=== PATIENT | male | born 1970 | race Caucasian/White ===

== ENCOUNTER 2024-03-22 13:23 | Emergency (ER) | payer OTHER ==
[2024-03-22 13:37] VITALS: TEMP 98.3
[2024-03-22] MEDS ORDERED: DUONEB 0.5-3 MG/3 ml Neb IH ONE (13:51)
[2024-03-22] MEDS: DUONEB 0.5-3 MG/3 ml Neb IH ONE (13:55)
--- NOTE | 2024-03-22 14:00 | ERPHSYRPT ---
- History of Present Illness Time Seen by Provider: 03/22/24 13:52 Historian: patient Exam Limitations: no limitations Patient Subjective Stated Complaint: chest discomfort Triage Nursing Assessment: patient state that he has had a cold the last few weeks feeling moderately SOB. over the past week he has had intermittent chest pain that has brought him to his knees. now currently is experiencing discomfort Physician History: 54 years old male with history of tobacco use presented in the ER with complaint of right-sided chest pain off and on for 1 week along with shortness of breath. Patient reports initially he had cold symptoms, coughing up yellow-green sputum moderate in amount. Since last week he is having shortness of breath with minimal exertion where he has to rest to catch his breath. He is also comp laining of right lower chest pain and hurts to take a deep breath. He was walking his kids to the bus stop and it suddenly hit bringing him to his knees. Denies any lower extremity swelling. Patient reports having history of chest pains in the past and had stress test done sometimes back in [place] but does not know the results. Did not have a cardiac cath done. Prior Chest Pain/Cardiac Workup: no prior chest pain Nitro Today/Relief: no nitro taken today Aspirin Treatment Today: no aspirin today Allergies/Adverse Reactions: No Known Drug Allergies Allergy (Unverified 03/22/24 13:37) Travel Risk - International Travel Have you traveled outside of the country in past 3 weeks: No - Emerging Infectious Disease Symptoms: Abdominal Pain, Cough: New Onset, Diarrhea, Headaches/Body Aches/, Joint Pain, Shortness of Breath - Review of Systems Constitutional: No Symptoms Eyes: No Symptoms Ears, Nose, & Throat: No Symptoms Respiratory: Cough, Dyspnea, Dyspnea on Exertion (PETER) Cardiac: Chest Pain Abdominal/Gastrointestinal: No Symptoms Genitourinary Symptoms: No Symptoms Musculoskeletal: No Symptoms Skin: No Symptoms Neurological: No Symptoms Endocrine: No Symptoms Hematologic/Lymphatic: No Symptoms - Past Medical History Cardiac History: Angina Respiratory History: COPD - Social History Smoking Status: Current every day smoker How long have you smoked: 40 Drug Use: none - Nursing Vital Signs Nursing Vital Signs: Initial Vital Signs Temperature 98.3 F 03/22/24 13:29 Pulse Rate 90 03/22/24 13:29 Respiratory Rate 16 03/22/24 13:29 Blood Pressure 140/84 03/22/24 13:29 O2 Sat by Pulse Oximetry 98 03/22/24 13:29 Pain Scale Pain Intensity 0 - Physical Exam General Appearance: no apparent distress Eye Exam: PERRL/EOMI Ears, Nose, Throat Exam: normal ENT inspection, pharynx normal Neck Exam: normal inspection, non-tender, supple, full range of motion Respiratory Exam: diminished breath sounds (Right lower), No accessory muscle use, No wheezing Cardiovascular Exam: regular rate/rhythm, normal heart sounds Gastrointestinal/Abdomen Exam: soft, normal bowel sounds, No tenderness Back Exam: normal inspection, normal range of motion Extremity Exam: normal inspection, normal range of motion Neurologic Exam: alert, oriented x 3, cooperative Skin Exam: normal color SpO2 Interpretation: normal SpO2: 98 O2 Delivery: Room Air - Course EKG Interpreted by Me: RATE (76), Sinus Rhythm, NORMAL AXIS, NORMAL INTERVALS, NORMAL QRS Ordered Tests: Active Orders 24 hr Category Date Time Status EKG-ER Only STAT Care 03/22/24 13:46 Completed IV Insertion STAT Care 03/22/24 13:46 Completed CHEST WITH CONTRAST [CT] Stat Exams 03/22/24 15:01 Completed BLOOD CULTURE Stat Lab 03/22/24 14:09 Received CBC W DIFF Stat Lab 03/22/24 14:02 Completed CMP Stat Lab 03/22/24 14:02 Completed D-DIMER QUANTITATIVE Stat Lab 03/22/24 14:02 Completed Lactic Acid Stat Lab 03/22/24 13:46 Completed Lactic Acid Stat Lab 03/22/24 16:00 Completed MAGNESIUM Stat Lab 03/22/24 14:02 Completed NT PRO BNPII Stat Lab 03/22/24 14:09 Completed TROPONIN Q4H Lab 03/22/24 14:09 Completed TROPONIN Q4H Lab 03/22/24 17:28 Completed Respiratory Therapy Assessment DAILY RT 03/22/24 13:58 Completed Transfer Order Routine Transfer 03/22/24 Ordered Medication Summary Discontinued Medications Generic Name Dose Route Start Last Admin Trade Name Freq PRN Reason Stop Dose Admin Albuterol/Ipratropium 3 ml 03/22/24 13:46 03/22/24 13:55 Ipratropium/Albuterol Sulfate 3 Ml Ampul.Neb IH 03/22/24 13:47 3 ml STAT ONE Administration Albuterol/Ipratropium Confirm 03/22/24 13:51 Ipratropium/Albuterol Sulfate 3 Ml Ampul.Neb Administered 03/22/24 13:52 Dose 3 ml IH .STK-MED ONE Sodium Chloride 1,000 mls @ 999 mls/hr 03/22/24 15:02 03/22/24 17:09 Sodium Chloride 0.9% 1000 Ml IV 03/22/24 16:02 Infused .Q1H1M STA Infusion Sodium Chloride Confirm 03/22/24 15:13 Sodium Chloride 0.9% 1000 Ml Administered 03/22/24 15:14 Dose 1,000 mls @ ud .ROUTE .STK-MED ONE Lab/Rad Data: Laboratory Result Diagrams 03/22/24 14:02 03/22/24 14:02 Laboratory Results 03/22/24 03/22/24 03/22/24 Range/Units 17:28 16:00 14:09 WBC (4.23-9.07) x10^3/uL RBC (4.63-6.08) x10^6/uL Hgb (13.7-17.5) g/dL Hct (40.1-51.0) % MCV (79.0-92.2) fL MCH (25.7-32.2) pg MCHC (32.3-36.5) g/dL RDW (11.6-14.4) % Plt Count (163-337) x10^3/uL MPV (9.4-12.4) fL Gran % (34.0-67.9) % Immature Gran % (Auto) (0.001-0.429) % Nucleat RBC Rel Count (0.00-0.2) % Eos # (Auto) (0.04-0.54) x10^3/uL Immature Gran # (Auto) (0.001-0.031) x10^3u/L Absolute Lymphs (auto) (1.32-3.57) x10^3/uL Absolute Monos (auto) (0.30-0.82) x10^3/uL Absolute Nucleated RBC (0.00-0.012) x10^3u/L Lymphocytes % (21.8-53.1) % Monocytes % (5.3-12.2) % Eosinophils % (0.8-7.0) % Basophils % (0.2-1.2) % Absolute Granulocytes (1.78-5.38) x10^3/uL Basophils # (0.01-0.08) x10^3/uL D-Dimer (0.0-0.50) mg/L Sodium (135-145) mmol/L Potassium (3.5-5.1) mmol/L Chloride (98-107) mmol/L Carbon Dioxide (22-30) mmol/L Anion Gap (5-15) MEQ/L BUN (9-20) mg/dL Creatinine (0.66-1.25) mg/dL Estimated GFR ML/MIN Glucose (74-106) mg/dL Lactic Acid 0.9 (0.4-2.0) Calcium (8.4-10.2) mg/dL Magnesium (1.6-2.3) mg/dL Total Bilirubin (0.2-1.3) mg/dL AST (17-59) U/L ALT (0-50) U/L Alkaline Phosphatase (38-126) U/L Troponin I < 0.012 (0.000-0.033) ng/mL NT-Pro-B Natriuret Pep 22.0 (<300) pg/mL Serum Total Protein (6.3-8.2) g/dL Albumin (3.5-5.0) g/dL 03/22/24 03/22/24 03/22/24 Range/Units 14:09 14:02 14:02 WBC (4.23-9.07) x10^3/uL RBC (4.63-6.08) x10^6/uL Hgb (13.7-17.5) g/dL Hct (40.1-51.0) % MCV (79.0-92.2) fL MCH (25.7-32.2) pg MCHC (32.3-36.5) g/dL RDW (11.6-14.4) % Plt Count (163-337) x10^3/uL MPV (9.4-12.4) fL Gran % (34.0-67.9) % Immature Gran % (Auto) (0.001-0.429) % Nucleat RBC Rel Count (0.00-0.2) % Eos # (Auto) (0.04-0.54) x10^3/uL Immature Gran # (Auto) (0.001-0.031) x10^3u/L Absolute Lymphs (auto) (1.32-3.57) x10^3/uL Absolute Monos (auto) (0.30-0.82) x10^3/uL Absolute Nucleated RBC (0.00-0.012) x10^3u/L Lymphocytes % (21.8-53.1) % Monocytes % (5.3-12.2) % Eosinophils % (0.8-7.0) % Basophils % (0.2-1.2) % Absolute Granulocytes (1.78-5.38) x10^3/uL Basophils # (0.01-0.08) x10^3/uL D-Dimer 0.55 H (0.0-0.50) mg/L Sodium 139 (135-145) mmol/L Potassium 3.8 (3.5-5.1) mmol/L Chloride 102 (98-107) mmol/L Carbon Dioxide 26 (22-30) mmol/L Anion Gap 13.8 (5-15) MEQ/L BUN 13 (9-20) mg/dL Creatinine 1.00 (0.66-1.25) mg/dL Estimated GFR 90.0 ML/MIN Glucose 107 H (74-106) mg/dL Lactic Acid (0.4-2.0) Calcium 9.7 (8.4-10.2) mg/dL Magnesium 2.1 (1.6-2.3) mg/dL Total Bilirubin 0.40 (0.2-1.3) mg/dL AST 28 (17-59) U/L ALT 30 (0-50) U/L Alkaline Phosphatase 61 (38-126) U/L Troponin I < 0.012 (0.000-0.033) ng/mL NT-Pro-B Natriuret Pep (<300) pg/mL Serum Total Protein 7.7 (6.3-8.2) g/dL Albumin 4.5 (3.5-5.0) g/dL 03/22/24 03/22/24 Range/Units 14:02 13:46 WBC 7.4 (4.23-9.07) x10^3/uL RBC 5.09 (4.63-6.08) x10^6/uL Hgb 15.5 (13.7-17.5) g/dL Hct 45.6 (40.1-51.0) % MCV 89.6 (79.0-92.2) fL MCH 30.5 (25.7-32.2) pg MCHC 34.0 (32.3-36.5) g/dL RDW 12.7 (11.6-14.4) % Plt Count 216 (163-337) x10^3/uL MPV 10.1 (9.4-12.4) fL Gran % 68.6 H (34.0-67.9) % Immature Gran % (Auto) 0.7 H (0.001-0.429) % Nucleat RBC Rel Count 0.0 (0.00-0.2) % Eos # (Auto) 0.11 (0.04-0.54) x10^3/uL Immature Gran # (Auto) 0.05 H (0.001-0.031) x10^3u/L Absolute Lymphs (auto) 1.54 (1.32-3.57) x10^3/uL Absolute Monos (auto) 0.60 (0.30-0.82) x10^3/uL Absolute Nucleated RBC 0.00 (0.00-0.012) x10^3u/L Lymphocytes % 20.8 L (21.8-53.1) % Monocytes % 8.1 (5.3-12.2) % Eosinophils % 1.5 (0.8-7.0) % Basophils % 0.3 (0.2-1.2) % Absolute Granulocytes 5.09 (1.78-5.38) x10^3/uL Basophils # 0.02 (0.01-0.08) x10^3/uL D-Dimer (0.0-0.50) mg/L Sodium (135-145) mmol/L Potassium (3.5-5.1) mmol/L Chloride (98-107) mmol/L Carbon Dioxide (22-30) mmol/L Anion Gap (5-15) MEQ/L BUN (9-20) mg/dL Creatinine (0.66-1.25) mg/dL Estimated GFR ML/MIN Glucose (74-106) mg/dL Lactic Acid 2.5 H (0.4-2.0) Calcium (8.4-10.2) mg/dL Magnesium (1.6-2.3) mg/dL Total Bilirubin (0.2-1.3) mg/dL AST (17-59) U/L ALT (0-50) U/L Alkaline Phosphatase (38-126) U/L Troponin I (0.000-0.033) ng/mL NT-Pro-B Natriuret Pep (<300) pg/mL Serum Total Protein (6.3-8.2) g/dL Albumin (3.5-5.0) g/dL - Progress Progress: re-examined Air Movement: good Progress Note: 03/22/24 17:59 54 years old is evaluated in the ER for right-sided chest pain with some shortness of breath off and on going on for a month with progressive worsening lately. The EKG is normal sinus rhythm with no acute ischemic changes. Is given fluids and symptomatic treatment, on reevaluation he is feeling much better. Patient has normal white count, chemistries fairly unremarkable including troponin x 2, has elevated D-dimer but CTA is negative for pulmonary embolism, pneumonia pneumothorax. Patient has stable nodules which she is advised to have outpatient follow-up. Initial lactate was 2.5 but after fluids it improved to 0.9. Patient is a low heart score and pain is not very typical of cardiac. Does seem to have some element of reactive airway di sease/bronchitis. I would treat him with short course of steroid, Z-Emile since patient's symptoms been going on for a month and albuterol inhaler. Outpatient follow-up with primary care and cardiology recommended. Discussed signs symptoms of worsening needing return to ER which he seems understanding. Stable for discharge. Counseled pt/family regarding: lab results, diagnosis, need for follow-up, rad results Medical Desision Making - Independent Historian Additional History obtained from: Spouse - Diagnostic Testing Diagnostic test were ordered, analyzed, and reviewed by me: Yes Radiological Interpretation: Reviewed by me, Teleradiologist Report - Risk of complications The pt has a mod risk of morbidity or mortality based on: Need for prescription drug management - Departure Departure Disposition: Home Clinical Impression: Bronchitis, Atypical chest pain Condition: Stable Critical Care Time: No Referrals: DOCTOR,NO FAMILY [Primary Care Provider] - Follow up with PCP 1 day MARYAN PRADO [CONSULTING PHYSICIAN] - Follow up/PCP as directed (Call for appointment) Instructions: Angina (DC), Acute bronchitis in adults Additional Instructions: Do not smoke. Follow-up with primary care and cardiology for reevaluation. Return to ER for worsening chest pain/difficulty breathing or if develop fever chills etc. Prescriptions: Albuterol Sulfate [Albuterol Sulfate Hfa] 8.5 gm IH Q6H PRN 7 Days #1 inh PRN Reason: Cough Prednisone 20 mg [Deltasone 20 mg] 60 mg PO DAILY 5 Days #15 tablet Azithromycin 250 mg [Zithromax 250 MG TABLET] 250 mg PO ZPACK #6 tablet
[2024-03-22 14:21] LABS: Absolute Neutrophil Ct (ANC) 5.09 x10^3/uL (1.78-5.38); BASOPHIL % 0.3 % (0.2-1.2); Basophil (Absolute #) 0.02 x10^3/uL (0.01-0.08); Eosinophil % 1.5 % (0.8-7.0); Eosinophil (Absolute #) 0.11 x10^3/uL (0.04-0.54); Hematocrit 45.6 % (40.1-51.0); Hemoglobin 15.5 g/dL (13.7-17.5); IMMATURE GRAN # 0.05 x10^3u/L (0.001-0.031); IMMATURE GRAN % 0.7 % (0.001-0.429); Lymphocyte (Absolute #) 1.54 x10^3/uL (1.32-3.57); Lymphocytes % 20.8 % (21.8-53.1); Mean Cell Volume 89.6 fL (79.0-92.2); Mean Corpuscular Hemoglobin 30.5 pg (25.7-32.2); Mean Platelet Volume 10.1 fL (9.4-12.4); Monocytes % 8.1 % (5.3-12.2); Neutrophil % 68.6 % (34.0-67.9); Platelet Count 216 x10^3/uL (163-337); Red Blood Count 5.09 x10^6/uL (4.63-6.08); Red Cell Distribution Width 12.7 % (11.6-14.4); White Blood Count 7.4 x10^3/uL (4.23-9.07)
[2024-03-22 14:35] LABS: ALBUMIN 4.5 g/dL (3.5-5.0); ANION GAP 13.8 MEQ/L (5-15); BILIRUBIN,TOTAL 0.4 mg/dL (0.2-1.3); Calcium 9.7 mg/dL (8.4-10.2); MAGNESIUM 2.1 mg/dL (1.6-2.3); Potassium 3.8 mmol/L (3.5-5.1); Total Protein 7.7 g/dL (6.3-8.2)
[2024-03-22] MEDS ORDERED: Sodium Chloride 0.9% 1000 ML 1,000 ML ONE (15:13)
[2024-03-22] MEDS: Sodium Chloride 0.9% 1000 ML 1,000 ML IV STA (15:15)
--- NOTE | 2024-03-22 16:30 | XRAY ---
CLINICAL HISTORY: sob, r/o PE COMPARISON: No prior studies available for comparison. TECHNIQUE: CT angiography of the chest was performed with and without intravenous contrast (89cc Isovue 370) with the following protocol: axial images with, reconstructed coronal and sagittal images. Non-contrast images were initially acquired, followed by contrast-enhanced images in arterial and venous phases. Intravenous contrast [name and volume] was administered using automated injection techniques. Bolus tracking was employed to optimize arterial phase imaging. One of these 3D techniques was utilized: Maximum Intensity Pixel (MIP), 3D Reconstructed Images, Volume Rendered Images, Surface Shaded Rendering. One of the following dose reduction techniques was utilized for this exam: Automated exposure control, adjustment of the mA and/or kV according to patient size, and use of iterative reconstruction. FINDINGS: Pulmonary Arteries: Pulmonary arteries are normal in opacification. No evidence of pulmonary embolism. No stenosis or filling defects. Pulmonary truncus measures 2.5 cm, the right main pulmonary artery measures 1.9 cm, and the left main pulmonary artery measures 1.9 cm, which is normal. Aorta: No aneurism or dissection of the thoracic aorta was noted. Mediastinum: No mediastinal mass. Heart: Increased in size with normal morphology of the heart. No pericardial effusion. Lungs: The scanned pulmonary parenchyma shows no definite consolidation. Bilateral centrilobular emphysematous changes most appreciated at upper lobes. Subsegmental lung atelectasis of basal segment of both lower lobes. A few solid nodules measuring up to 8.0 cm, are seen in the right upper and middle lobes. No pleural effusion. Bones: Degenerative changes in the thoracic spine. Soft Tissues: Normal appearance of the visualized soft tissues. No abnormal masses or fluid collections. Small hiatus hernia was noted. The scanned upper abdomen is unremarkable. IMPRESSION: 1. No evidence of pulmonary embolism or significant stenosis. 2. No aneurysm or dissection of the thoracic aorta was noted. 3. A few solitary solid nodules in the right lung. Fleischner Society pulmonary nodule recommendations for multiple solid nodules >6 mm in low-risk patients is CT at 3-6 months, then consider CT at 18-24 months, and in high-risk patients: CT at 3-6 months, then CT at 18-24 months. 4. Bilateral centrilobular emphysematous changes most appreciated at upper lobes. 5. Subsegmental lung atelectasis of basal segment of both lower lobes. 6. Small hiatus hernia was noted. Electronically Signed by: Rylee Mojica MD. (03/22/2024 16:26:04 EDT)
[2024-03-22 17:10] VITALS: PULSE 68
[2024-03-22 17:47] VITALS: O2SAT 98
[2024-03-22 18:05] VITALS: RESP 18
[2024-03-22 18:06] VITALS: BP 110/68
== END 2024-03-22 18:40 | disposition home or self-care (01) ==
LOC: ED 13:23
DX: R07.9 Chest pain, unspecified (principal); R06.02 Shortness of breath; J40 Bronchitis, not specified as acute or chronic; F17.200 Nicotine dependence, unspecified, uncomplicated
CPT/HCPCS: 36000; 36415; 71260; 80053; 83605; 83735; 83880; 84484; 85025; 85379; 87040; 93005; 94640; 96360; 99284; A9270-GY